=== PATIENT | female | born 1965 | race Caucasian/White ===

== ENCOUNTER 2024-07-15 13:30 | Emergency (ER) | payer BC, SELFPAY ==
[2024-07-15 13:39] VITALS: BP 155/85
[2024-07-15 14:45] LABS: % Basophils 0.4 % (0-2); % Eosinophils 1.1 % (0-6); % Immature Granulocytes 0.5 % (0-0.5); % Lymphocytes 14.4 % (20.5-51.1); % Monocytes 10.2 % (1.7-9.3); % Neutrophils 73.4 % (42.2-75.2); Absolute Eosinophils 0.1 10^3/uL (0-0.7); Absolute Immature Granulocytes 0.1 10^3/uL (0-0.05); Absolute Lymphocytes 1.6 10^3/uL (1.2-3.4); Absolute Monocytes 1.1 10^3/uL (0.1-0.6); Hemoglobin 13.7 g/dL (12.0-16.0); Mean Corp Hgb Conc. 34.3 g/dL (33.0-37.0); Mean Corpuscular Hgb 28.7 pg (27.0-31.0); Mean Corpuscular Volume 83.7 fL (81.0-99.0); Mean Platelet Volume 9.5 fL (7.4-10.4); Nucleated Red Blood Cells % 0 %; Platelet Count 238 10^3/uL (130-400); Red Blood Cell Count 4.78 10^6/uL (4.20-5.40); Red Cell Dist. Width 12.4 % (11.5-14.5); White Blood Cell Count 10.9 10^3/uL (4.8-10.8)
--- NOTE | 2024-07-15 14:52 | ED.GENMED ---
History of Present Illness
General
Chief Complaint: Chest Pain
Source: patient
Time Seen by Provider: 07/15/24 14:25
History of Present Illness
History of Present Illness:
58-year-old female with past medical history of hypertension presenting to the emergency department from urgent care for evaluation after developing midsternal nonradiating chest pain described to be sharp, lasted about 45 minutes to an hour
associated with some mild nausea and resolved after she got to urgent care and was given an 81 mg aspirin. Patient states she was sitting at her desk doing work when symptoms started, had eaten some almonds and strawberries for breakfast prior to
this which is not atypical for her, presently without any symptoms. Patient states she has not had anything similar in the past. She does note that she has been exercising more frequently with weights and light walking and notes that she does not
get any symptoms during this. No fevers or recent illnesses. Social history was negative for cigarettes or tobacco. Family history was noted for elevated blood pressure however no cardiac related issues.
Past History
Past History
ED Past Medical History: HTN and Other (IBS)
ED Past Surgical History: and Orthopedic
Social History
Tobacco: Non-smoker
Alcohol: Occasional
Drug: None
Personal:
Living: with family
Employment: Employed
Family History
Family History: Other (Noncontributory)
Review of Systems
Review of Systems
All Other Systems: ROS reviewed and negative except as documented in HPI and ROS
Phy Exam
Physical Exam
Physical Exam:
GENERAL: Alert , in no apparent distress
HEAD: NCAT
EYE: conjunctiva clear
NECK: Supple
ENT: o/p clr, mmm.
CARDIAC: Regular rate and rhythm
LUNGS: Clear breath sounds bilaterally, no acute respiratory distress, no wheezes/rales/rhonchi
ABDOMEN: soft, non-tender, non distended
NEUROLOGICAL: Alert and oriented
SKIN: Warm and dry, skin intact.
MUSCULOSKELETAL: well perfused.
PSYCH: Normal and appropriate interaction.
Scores
Heart Failure Risk
Heart Failure Risk Score: Not Applicable
Heart Score for Chest Pain Patients
STEMI patient?: No
History: Slightly or Non-Suspicious
ECG: Normal
Age: >45 - <65 years
Risk Factors: 1 or 2 Risk Factors
Troponin: </= Normal Limit
Heart Score for Chest Pain Patients: 2
Heart Score Risk: 2.5% MACE over next 6 weeks
Withdrawal Assessment of Alcohol
Withdrawal Assessment Completed?: Not applicable
Course
Orders/Labs/Results
Orders:
Orders
07/15/24 13:31
EKG [Electrocardiogram (*1)] Urgent
Reason for Study: Chest Pain
EKG- Treatment ONCE
07/15/24 14:34
D-Dimer Urgent
07/15/24 14:35
Basic Metabolic Panel Urgent
Complete Blood Count/With Diff Urgent
Troponin I Urgent
07/15/24 15:34
CT Chest Pe Study Urgent
Comment:
Reason For Exam: sharp chest pain, elevated dimer
07/15/24 17:21
Troponin I Urgent
Abnormal Lab Results
07/15/24 07/15/24
14:34 14:35
WBC 10.9 H 10^3/uL
(4.8-10.8)
Abs Immat Gran (auto) 0.1 H 10^3/uL
(0-0.05)
Absolute Neuts (auto) 8.0 H 10^3/uL
(1.4-6.5)
Absolute Monos (auto) 1.1 H 10^3/uL
(0.1-0.6)
Lymphocytes % 14.4 L %
(20.5-51.1)
Monocytes % 10.2 H %
(1.7-9.3)
D-Dimer 0.71 H ug/mlFEU
(0.00-0.50)
BUN 20 H mg/dl
(7-17)
Glucose 107 H mg/dl
(70-99)
07/15/24 14:35
07/15/24 15:00
Vital Signs
Initial and Last Documented VS:
Initial Vital Signs
Temp Pulse Resp BP Pulse Ox
99.1 F 73 18 155/85 97
07/15/24 13:39 07/15/24 13:39 07/15/24 13:39 07/15/24 13:39 07/15/24 13:39
Last Documented Vital Signs
Temp Pulse Resp BP Pulse Ox
99.1 F 64 18 170/87 98
07/15/24 13:39 07/15/24 18:16 07/15/24 18:16 07/15/24 18:16 07/15/24 18:16
MDM/Problems Addressed
Differential Diagnosis Includes:
ACS, PE, PTX, GERD, musculoskeletal chest pain
MDM/Problems Addressed:
58-year-old female presenting to the emergency department for evaluation of midsternal chest pain while at rest earlier today, symptoms lasted about 40 minutes and resolved spontaneously. Patient with past medical history of hypertension but no
other cardiac risk factors. EKG in triage nonischemic. Patient currently chest pain-free. Mildly hypertensive on arrival. Will perform 3-hour troponin. D-dimer ordered. Anticipate outpatient workup with chest pain hotline. Reassessment
following
Chronic conditions affecting care: HTN
*Radiology
Radiology exam reviewed: radiology read reviewed
*Pulse Oximetry
Patient hypoxic: no
*EKG
Interpreted by ED Provider?: Yes
Heart Rate: 66
Rate: normal
Rhythm: sinus
[place]: normal axis
Ischemia: no ischemia
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
Rate: normal
Rhythm: sinus
*Critical Care Note
Total Time (30-74mins, 75-104mins- exclusive of procedures): Not Applicable
Patient Management
Escalation/DeEscalation of care consider admission/obs:
Patient CT of the chest negative for PE. Repeat troponin also undetectable. Given patient's low risk scoring will notify the chest pain hotline for outpatient follow-up. Patient aware of return precautions. Stable for discharge home.
ED Attending Note
-
Portions of this chart may have been created with voice recognition software.� Occasional wrong word or��sound alike� substitutions may have occurred due to the inherent limitations of voice recognition software.
Discharge Plan
Departure
Patient Disposition: Home (Routine Discharge)
Date of Disposition: 07/15/24
Time of Disposition: 18:02
Patient with high blood pressure during this ER visit?: Yes
Discharge Problem:
Chest pain
Instructions: Chest Pain CBC Follow Up
Prescriptions:
No Action
levonorg-eth estrad triphasic 1 TAB tablet
1 tab PO DAILY
triamcinolone acetonide [Nasacort] 10.8 ML aerosol,spray
1 SPRAY DAILY
oxycodone 5 MG tablet
5 mg PO Q4HPRN PRN (Reason: pain) Qty: 20 0RF
Referrals:
Shazia Cantu DO [Family Provider] -
Interventions
Interventions:
*Risk Screen - Suicide Last Done: 07/15/24 13:45
*General Assessment Last Done: 07/15/24 14:36
*Neglect/Abuse Screening Last Done: 07/15/24 13:45
*ED COVID-19 Vaccine History Last Done: 07/15/24 14:36
*Nursing Disposition Last Done: 07/15/24 18:16
ED- Cardiac Assessment Last Done: 07/15/24 14:36
Discharge Date and Time
Discharge Date/Time: 07/15/24 18:17
Print Language: [id number]
[2024-07-15 14:57] LABS: D-Dimer 0.71 ug/mlFEU (0.00-0.50)
[2024-07-15 15:01] LABS: Blood Urea Nitrogen 20 mg/dl (7-17); Calcium 9.8 mg/dl (8.4-10.2); Carbon Dioxide 27 mmol/L (22-30); Chloride 103 mmol/L (98-107); Glucose 107 mg/dl (70-99); Sodium 142 mmol/L (135-145); eGFR > 60.00
[2024-07-15 15:07] LABS: Troponin I < 0.012 ng/ml
[2024-07-15 15:57] VITALS: BP 145/75
[2024-07-15 17:56] LABS: Troponin I < 0.012 ng/ml
[2024-07-15 18:16] VITALS: BP 170/87
== END 2024-07-15 18:17 | disposition home or self-care (01) ==
LOC: EMR 13:30
PROVIDERS: Physician Assistant Medical; EMERGENCY PHYSICIAN Emergency Medicine; FAMILY PHYSICIAN Family Medicine
DX: R07.89 Other chest pain (principal); R11.0 Nausea; I10 Essential (primary) hypertension; K58.9 Irritable bowel syndrome, unspecified
CPT/HCPCS: 99284; 71275; 80048; 84484; 85025; 85379; 93005; Q9967